=== PATIENT | male | born 1975 | race Caucasian/White ===

== ENCOUNTER 2024-02-21 12:43 | Emergency (ER) | payer BC ==
[2024-02-21] MEDS: Lidocaine 1% 10 ML MDV INJECT ONE (15:10)
[2024-02-21] MEDS: Diphtheria,Pertussis(Acell),Tetanus Vaccine 0.5 ML Syringe IM ONE (15:10)
[2024-02-21] MEDS: Bacitracin Oint 1 GM U/D Packet TOP ONE (15:13)
== END 2024-02-21 15:56 | disposition home or self-care (01) ==
LOC: JP.ED 12:43
DX: S61.011A Laceration without foreign body of right thumb without damage to nail, initial encounter (principal); S61.210A Laceration without foreign body of right index finger without damage to nail, initial encounter; S61.212A Laceration without foreign body of right middle finger without damage to nail, initial encounter; S61.214A Laceration without foreign body of right ring finger without damage to nail, initial encounter; S61.216A Laceration without foreign body of right little finger without damage to nail, initial encounter; Z23 Encounter for immunization; Z79.899 Other long term (current) drug therapy; E78.00 Pure hypercholesterolemia, unspecified; K21.9 Gastro-esophageal reflux disease without esophagitis; W29.3XXA Contact with powered garden and outdoor hand tools and machinery, initial encounter
CPT/HCPCS: 12005; 90471; 90715; 99282-25